=== PATIENT | female | born 1945 | race Caucasian/White ===

== ENCOUNTER 2020-02-14 07:50 | Day surgery (SDC) | payer OTHER ==
[~2020-02-14] VITALS: Ht 152.4 cm; Wt 64.5 kg
--- NOTE | ~2020-02-14 | OP ---
PATIENT NAME: LORI HUSAIN MEDICAL RECORD: [id number] :45 LOCATION:D.OPS ADMISSION DATE: SURGEON: MITCHELL MAYER MD DATE OF OPERATION: 02/14/2020 PREOPERATIVE DIAGNOSIS: Recurrent ileocecal valve polyp. POSTOPERATIVE DIAGNOSES: 1. 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 2. Extensive pandiverticulosis. PROCEDURES: 1. Total colonoscopy to cecum. 2. Polypectomy of a recurrent ileocecal valve polyp utilizing the argon plasma pump house operator. SURGEON: Mitchell Mayer MD PHYSICAL THERAPY RESIDENT: None. BLOOD LOSS: Minimal. ANESTHESIA: IV sedation. The patient is a Alevism and will not take blood products. ENDOSCOPIC COURSE: The patient was conveyed to endoscopy suite electively on 02/14/2020. IV sedation was induced by the anesthesia staff. The patient was placed in the Ramirez position. The patient has very large prolapsed internal and external hemorrhoids. A colonoscope was inserted through the anus. It was advanced with difficulty to the cecum. The prep was adequate. I slowly withdrew the endoscope. The recurrent ileocecal valve polyp was noted. Cold endoscopic biopsies were obtained of the polyp and then I ablated any remaining polypoid tissue with the argon plasma pump house operator utilizing the right colon setting in the forced mode. I then slowly withdrew the endoscope. There was no evidence of proctitis or colitis. A retroflexed view was obtained in the rectum. I then unretroflexed the scope and removed it under direct vision. I will see the patient in my office in 2-3 weeks to review the results of the biopsies. I am going to plan for her next colonoscopy to take place in 2 years. TRANSINT:[id number] Voice Confirmation ID: [id number] DOCUMENT ID: [id number] OPERATIVE REPORT [id number] LORI HUSAIN MITCHELL MAYER MD CC: SHASHANK SCOTT MD and NIRMAL FLETCHER MD [id number] DICTATION DATE: 02/14/20 1425 TUBING TESTER: 02/15/20 0009 [facility] 02/14/20 [facility] [address] [place] [address]
[2020-02-14 08:27] LABS: BASOPHILS 0.9 % (0-2); EOSINOPHILS 1.4 % (0-7); HEMATOCRIT 41.1 % (36.0-48.0); HEMOGLOBIN 13.5 g/dL (12-16); MCH 30.5 pg (26.0-34.0); MCHC 32.8 g/dL (31.0-37.0); MEAN PLATELET VOLUME 7.9 fL (7.4-10.4); MONOCYTES 9.3 % (2-11); NEUTROPHILS 58.4 % (40-80); PLATELET COUNT 228 10x3/uL (130-400); RBC 4.42 10x6/uL (4.00-5.40); RDW 13.8 % (11.5-14.5); WBC 4.4 10x3/uL (4.8-10.8)
[2020-02-14 08:30] LABS: ANION GAP 9.4 mmol/L (8-16); CALCIUM 8.7 mg/dL (8.5-10.1); CARBON DIOXIDE 26.9 mmol/L (21.0-32.0); CREATININE - SERUM 0.9 mg/dL (0.6-1.3); POTASSIUM - SERUM 3.3 mmol/L (3.5-5.1)
[2020-02-14 08:32] LABS: APTT 29.3 SECONDS (22.8-39.4); INR 0.97 (0.85-1.17); PROTIME 12.8 SECONDS (11.6-15.0)
[2020-02-14] MEDS ORDERED: COZAAR50 MG PO (09:58)
[2020-02-14] MEDS ORDERED: HYDROCHLOROTHIA25 MG PO (09:58)
[2020-02-14 09:59] VITALS: BP 138/70; Ht 152.4 cm; Wt 64.5 kg
[2020-02-14] MEDS ORDERED: ZETIA10 MG PO (09:59)
--- NOTE | 2020-02-14 16:24 | HP ---
PATIENT: LORI HUSAIN MEDICAL RECORD: [id number] ACCOUNT: [id number] LOCATION:D.[facility] : 45 ADMISSION DATE: 02/14/20 PCP: NIRMAL FLETCHER MD HISTORY AND PHYSICAL EXAMINATION HISTORY: The patient has had a recurrent ileocecal valve polyp. She is here for colonoscopy. PAST MEDICAL AND SURGICAL HISTORY: History of colon polyps, gastroesophageal reflux and hiatal hernia. History of hemorrhoid surgery, history of hysterectomy, history of breast surgery, history of cataract surgery, hypertension, hypercholesterolemia. HOME MEDICATIONS: Please see the nursing list. ALLERGIES: Please see the nursing list. REVIEW OF SYSTEMS: No CVA or seizures. No diabetes or thyroid problems. PHYSICAL EXAMINATION: GENERAL: The patient does not appear acutely ill. She does not appear chronically ill. VITAL SIGNS: Reviewed. EARS: External ears appear normal. EYES: Extraocular movements are intact. NECK: Trachea is midline. CHEST: No intercostal retractions. PULMONARY: Nonlabored, no stridor. IMPRESSION: Recurrent ileocecal valve polyp. PLAN: Colonoscopy with polypectomy. TRANSINT:[id number] Voice Confirmation ID: [id number] DOCUMENT ID: [id number] MITCHELL MAYER MD at 1624 CC: SHASHANK SCOTT MD and NIRMAL FLETCHER MD [id number] DICTATION DATE: 02/14/20 1331 WATER SAFETY INSTRUCTOR: 02/14/20 1402 [facility] [address] [place] [address]
== END 2020-02-14 15:52 | disposition home or self-care (01) ==
LOC: D.OPS 07:50
PROVIDERS: Anesthesiology; ATTEND Surgery
DX: D12.0 Benign neoplasm of cecum (principal); K57.80 Diverticulitis of intestine, part unspecified, with perforation and abscess without bleeding